=== PATIENT | female | born 1945 | race Caucasian/White ===

== ENCOUNTER → 2016-11-08 | Outpatient (CLI) | payer OTHER ==
--- NOTE | 2016-11-08 23:26 | MRI ---
MRI/MRA brain Indication: Chronic right-sided headache MRI of the brain was obtained with multiplanar fluid and non fluid weighted sequences with and withou t fat suppression. MRI of the brain was then performed with 3D [id number] sequences. Findings: There is no intracranial hemorrhage, mass effect or evidence of acute ischemia. The ventric les and extra-axial spaces are within normal limits. The globes and orbits show no abnormality. There is a partially empty sella . The intra-ocular muscles and optic nerves are normal in appearance. No parenchymal dysplasia seen. MRA images of the brain show no narrowing or occ lusion of the bilateral intra cerebral vasculature. Conclusion: No evidence of vascular narrowing or occlusion. Normal MRI of the brain. Reported By:
--- NOTE | 2016-11-08 23:28 | MRI ---
MRI/MRA brain Indication: Chronic right-sided headache MRI of the brain was obtained with multiplanar fluid and non fluid weighted sequences with and withou t fat suppression. MRI of the brain was then performed with 3D [id number] sequences. Findings: There is no intracranial hemorrhage, mass effect or evidence of acute ischemia. The ventric les and extra-axial spaces are within normal limits. The globes and orbits show no abnormality. There is a partially empty sella . The intra-ocular muscles and optic nerves are normal in appearance. No parenchymal dysplasia seen. MRA images of the brain show no narrowing or occ lusion of the bilateral intra cerebral vasculature. Conclusion: No evidence of vascular narrowing or occlusion on the MRA. Normal MRI of the brain. Reported By:
== END ==
LOC: RAD 15:13
PROVIDERS: ATTEND Psychiatry & Neurology Neurology
DX: R51 Headache (principal)
CPT/HCPCS: 70544; 70551